=== PATIENT | female | born 1935 | race American Indian/Alaskan Native ===

== ENCOUNTER 2019-05-06 20:44 | Inpatient (IN) | payer MEDICARE, OTHER ==
[~2019-05-06] VITALS: Ht 162.6 cm; Wt 65.8 kg
[~2019-05-06 20:44] MED LIST: ALLO300; AMLO5 PO; ASPI325EC; ASPI81EC PO; ATOR10; CITA20 PO; DIAZ5 PO; DOCU100; GLIP10ER PO; GLIP5; Guaifenesin Wit10 ML PO; HYDACE5; HYDCHL12.5; ISOMON30; LEVFLO500 PO; LEVSOD150; LEVSOD150 PO; LOSA50 PO; METO50 PO; METO50ER PO; MULVIT; OMEP20ER PO; PRAV20 PO; PROACE100 PO; Pepcid40 MG PO; ROSI4; SIMV40 PO; VALS80; VALS80 PO
[2019-05-06 21:04] LABS: BASOPHILS ABSOLUTE AUTO 0.02 K/mm3 (0.00-0.23); BASOPHILS PERCENT AUTO 0 % (0-2); EOSINOPHILS PERCENT AUTO 1 % (0-6); Hematocrit 37.4 % (33.0-51.0); Hemoglobin 12.7 g/dL (11.5-16.0); IMMATURE GRAN ABSOLUTE AUTO 0.03 K/mm3 (0.00-0.10); IMMATURE GRAN PERCENT AUTO 0 % (0-1); LYMPHOCYTES ABSOLUTE AUTO 1.44 K/mm3 (0.84-5.20); LYMPHOCYTES PERCENT AUTO 16 % (21-46); MONOCYTES ABSOLUTE AUTO 0.62 K/mm3 (0.16-1.47); MONOCYTES PERCENT AUTO 7 % (4-13); Mean Corpuscular HGB 32.3 pg (26.0-34.0); Mean Corpuscular Volume 95 fL (80-100); Mean Platelet Volume 11.5 fL (9.1-12.4); NEUTROPHILS ABSOLUTE AUTO 6.65 K/mm3 (1.96-9.15); NEUTROPHILS PERCENT AUTO 75 % (41-73); Platelet Count 166 K/mm3 (150-400); RDW Standard Deviation 42.5 fL (35.1-46.3); Red Blood Cell Count 3.93 M/mm3 (3.80-5.20); White Blood Cell Count 8.86 K/mm3 (4.00-11.30)
[2019-05-06 21:16] LABS: Alanine Aminotransfer (ALT/SGP 25 U/L (12-78); Albumin, Blood 3.8 g/dL (3.4-5.0); Albumin/Globulin Ratio 1.2 (0.8-1.8); Alk Phos 99 U/L (50-136); Anion Gap 8 mmol/L (6-16); Aspartate Aminotrans (AST/SGOT 28 U/L (12-37); Bilirubin, Total 0.2 mg/dL (0.1-1.0); Blood Urea Nitrogen 145 mg/dL (8-24); Bun/Creatinine Ratio 61.2 (12.0-20.0); CO2, Blood 23 mmol/L (21-32); Chloride, Blood 101 mmol/L (98-108); Creatinine, Blood 2.37 mg/dL (0.40-1.00); Ethanol (Alcohol), Blood, Med <3 mg/dL; Globulin, Blood 3.2 g/dL (2.2-4.0); Glomerular Filtration Rate 21 (60-); Glucose, Blood 78 mg/dL (70-99); Potassium, Blood 4.8 mmol/L (3.5-5.5); Sodium, Blood 132 mmol/L (136-145)
[2019-05-06] MEDS ORDERED: Aspir 8181 MG PO (21:18)
[2019-05-06] MEDS ORDERED: FURO40 PO (21:18)
[2019-05-06] MEDS ORDERED: LISI20 PO (21:19)
[2019-05-06] MEDS ORDERED: NITR.4SL SL (21:20)
[2019-05-06] MEDS ORDERED: Venlafaxine HCl75 MG PO (21:21)
[2019-05-06] MEDS ORDERED: HYDCHL25 PO (21:22)
[2019-05-06 22:05] LABS: Source, Urine Clean Catch
[2019-05-06 22:13] LABS: Appearance, Urine Clear (Clear); Bilirubin, Urine Neg (Neg); Blood, Urine Neg (Neg); Color, Urine Yellow (P-Yellow); Glucose Qualitative, Urine Neg (Neg); Ketones, Urine Neg (Neg); Leukocyte Esterase, Urine 1+ (Neg); Nitrite, Urine Neg (Neg); Protein, Urine Neg (Neg); Specific Gravity, Urine 1.015 (1.003-1.022); Urobilinogen, Urine NORM (Normal)
[2019-05-06 22:20] LABS: U Amphetamine Screen Not Detected; U Barbituate Screen Not Detected; U Benzodiazapine Screen Not Detected; U Buprenorphine Screen Not Detected; U Cannabinoids Screen Not Detected; U Cocaine Screen Not Detected; U Methadone Screen Not Detected; U Methamphetamine Screen Not Detected; U Opiates Screen Not Detected; U Phencyclidine Screen Not Detected
[2019-05-06 22:21] LABS: U Oxycodone Screen Not Detected; U Propoxyphene Screen Not Detected
[2019-05-06 22:23] LABS: Bacteria Few /hpf; Red Blood Cells, Urine Not Seen /hpf (0-2); Squamous Epithelial Cells Mod /hpf (Few); White Blood Cells, Urine 0-2 /hpf (0-5)
--- NOTE | 2019-05-07 00:29 | NUR ---
83 YR OLD FEMALE ADMITTED TO FLOOR FROM THE ED WITH DX OF ARF. ACCOMPANIED BY SEVERAL DAUGHTERS. ONE WHO VOICED WOULD STAY THROUGH NIGHT. ALERT AND ORIENTED. REPORT FROM ED WAS PT FELL AT HOME CAUSING HEMATOMA OF LEFT ARM. IVF OF NS - TO RECEIVE 2000 CC DUE TO LOW BP. ORIENTED TO [facility].
--- NOTE | 2019-05-07 04:31 | NUR ---
83 yr old female admitted to floor from the ED with Dx ARF. IVF of NS infusing at 200 ml/hr and received flu shot as per MD orders. Daughter at bedside. Pt has been up to bathroom with asist several times to void. Oriented to call light, call light in reach.
[2019-05-07 04:56] LABS: BASOPHILS ABSOLUTE AUTO 0.02 K/mm3 (0.00-0.23); BASOPHILS PERCENT AUTO 0 % (0-2); EOSINOPHILS ABSOLUTE AUTO 0.11 K/mm3 (0.00-0.68); EOSINOPHILS PERCENT AUTO 1 % (0-6); IMMATURE GRAN ABSOLUTE AUTO 0.04 K/mm3 (0.00-0.10); IMMATURE GRAN PERCENT AUTO 1 % (0-1); LYMPHOCYTES PERCENT AUTO 31 % (21-46); MONOCYTES ABSOLUTE AUTO 0.59 K/mm3 (0.16-1.47); MONOCYTES PERCENT AUTO 7 % (4-13); Mean Corpuscular HGB 32.9 pg (26.0-34.0); Mean Corpuscular HGB Conc 34.3 g/dL (31.5-36.5); Mean Corpuscular Volume 96 fL (80-100); Mean Platelet Volume 11.2 fL (9.1-12.4); NEUTROPHILS ABSOLUTE AUTO 4.88 K/mm3 (1.96-9.15); NEUTROPHILS PERCENT AUTO 60 % (41-73); Platelet Count 151 K/mm3 (150-400); RDW Standard Deviation 42.2 fL (35.1-46.3); Red Blood Cell Count 3.65 M/mm3 (3.80-5.20); White Blood Cell Count 8.14 K/mm3 (4.00-11.30)
[2019-05-07 05:13] LABS: Bun/Creatinine Ratio 63.4 (12.0-20.0); Calcium, Blood 8.8 mg/dL (8.5-10.1); Creatinine, Blood 2.02 mg/dL (0.40-1.00)
--- NOTE | 2019-05-07 16:59 | NUR ---
Spiritual Care inital note: Mrs. Teixeira was awake, alert, and speaking with two of her six adult children. Dtr appear very loving and concerned. They tell me they are already getting "our kidneys tested to see who can donate to mom." Pt became tearful when they said that and began talking to me about her conflicting feelings about agressive treatements vs letting nature take its course. She blames her health decline on the loss of three siblings this past Summer. Mrs. Teixeira says she has been unable to rise above her grief. She has a very large family--over 60 of them between her six children, grandkids, grt-grands, and grt-grt grands. She is clearly the matriarch and her dtrs are determined to keep her going. They were adamant with this. Mrs. Teixeira has a strong Scientologist moshe and is appreciaitve of gentle dependency counselor and prayer. It would be beneficial to speak with Mrs. Teixeira while she is alone to see just how far she wishes to go with treatments. It was clear to me that she was hesitant to speak about this with her dtrs present. She would benefit from a clear, understandable explaination of her options. Family Literacy Coordinator Services will remain available.
--- NOTE | 2019-05-07 19:30 | NUR ---
SHIFT SUMMARY NO ACUTE CHANGES. PATIENT DENIES PAIN, NAUSEA, AND SHORTNESS OF BREATH. PATIEN WEANED EASILY FROM 2L NC TO ROOM AIR. PATIENT OXYGEN SATURATION MAINTIANING ABOVE 92% ON ROOM AIR. PATIENT WORKED WITH PT TODAY. PATIENT UP SBA W/FWW. PATIENT AMBULATED IN HALLWAY WITH PT. FAMILY AT BEDSIDE. PATIENT'S DAUGHTERS VERY CONCERNED THAT PATIENT WOULD NEED KIDNEY TRANSPLANT. CARE PLAN AND PATIENT'S LABS REVIEWED WITH PATIENT AND FAMILY. FAMILY APPEARS TO FEEL MORE COMFORTABLE AT THIS TIME. CALL LIGHT IN REACH.
--- NOTE | 2019-05-08 03:14 | NUR ---
05/07/191999 PT RESTING COMFORTABLY IN BED WITH DAUGHTER ELDER AT SIDE WHOM VERY ATTENTIVE AND SPENDING NIGHT AT SIDE IN LOUNGE CHAIR. 05/08/19314 PT RESTING COMFORTABLY IN BED.
[2019-05-08 05:01] LABS: BASOPHILS ABSOLUTE AUTO 0.06 K/mm3 (0.00-0.23); BASOPHILS PERCENT AUTO 1 % (0-2); EOSINOPHILS ABSOLUTE AUTO 0.28 K/mm3 (0.00-0.68); EOSINOPHILS PERCENT AUTO 5 % (0-6); Hematocrit 33.4 % (33.0-51.0); Hemoglobin 11.1 g/dL (11.5-16.0); IMMATURE GRAN PERCENT AUTO 0 % (0-1); LYMPHOCYTES ABSOLUTE AUTO 2.34 K/mm3 (0.84-5.20); LYMPHOCYTES PERCENT AUTO 42 % (21-46); MONOCYTES ABSOLUTE AUTO 0.66 K/mm3 (0.16-1.47); MONOCYTES PERCENT AUTO 12 % (4-13); Mean Corpuscular HGB 32.6 pg (26.0-34.0); Mean Corpuscular HGB Conc 33.2 g/dL (31.5-36.5); Mean Corpuscular Volume 98 fL (80-100); Mean Platelet Volume 11.2 fL (9.1-12.4); NEUTROPHILS ABSOLUTE AUTO 2.27 K/mm3 (1.96-9.15); NEUTROPHILS PERCENT AUTO 40 % (41-73); Platelet Count 140 K/mm3 (150-400); RDW Coefficient Variation 12.4 % (11.7-14.2); RDW Standard Deviation 44.9 fL (35.1-46.3); White Blood Cell Count 5.61 K/mm3 (4.00-11.30)
[2019-05-08 05:25] LABS: Albumin, Blood 3.2 g/dL (3.4-5.0); Anion Gap 4 mmol/L (6-16); Blood Urea Nitrogen 80 mg/dL (8-24); Bun/Creatinine Ratio 52.6 (12.0-20.0); CO2, Blood 23 mmol/L (21-32); Calcium, Blood 8.5 mg/dL (8.5-10.1); Chloride, Blood 118 mmol/L (98-108); Creatinine, Blood 1.52 mg/dL (0.40-1.00); Glomerular Filtration Rate 35 (60-); Glucose, Blood 103 mg/dL (70-99); Magnesium, Blood 2.2 mg/dL (1.6-2.4); Potassium, Blood 4.9 mmol/L (3.5-5.5); Sodium, Blood 145 mmol/L (136-145); Troponin I <0.015 ng/mL (0.000-0.040)
[2019-05-08 05:28] LABS: Thyroid Stimulating Hormone 0.526 uIU/mL (0.360-4.800)
--- NOTE | 2019-05-08 06:35 | NUR ---
SHIFT SUMMARY: 83 Y/O FEMALE RESTED COMFORTABLY IN BED ALL SHIFT, DENIES PAIN OR NAUSEA, HAPPY AND COOPERATIVE, ELDER--DAUGTHER AT SIDE ALL SHIFT IN LOUNGE CHAIR AND VERY SUPPORTIVE, BED LOW POSITION WITH CALL LIGHT AT SIDE.
--- NOTE | 2019-05-08 18:42 | NUR ---
SHIFT SUMMARY PATIENT PLEASANT. FAMILY IN THE ROOM. DAUGHTER GOING TO STAY THE NIGHT WITH THE PATIENT. NO ACUTE CONCERNS AT THIS TIME. SHE MOVES TO THE BATHROOM WITH DAUGHTER HELP.
--- NOTE | 2019-05-08 23:54 | NUR ---
2000 PT RESTING COMFORTABLY IN BED WITH NUMEROUS FAMILY MEMBERS AT SIDE, ALERT AND ORIENTED X 4, DENIES PAIN OR NAUSEA. 2340 RESTING QUIETLY WITH DAUGHTER ELDER AT SIDE FOR NIGHT IN LOUNGE CHAIR.
[2019-05-09 04:53] LABS: BASOPHILS ABSOLUTE AUTO 0.04 K/mm3 (0.00-0.23); BASOPHILS PERCENT AUTO 1 % (0-2); EOSINOPHILS ABSOLUTE AUTO 0.37 K/mm3 (0.00-0.68); EOSINOPHILS PERCENT AUTO 5 % (0-6); Hematocrit 33.7 % (33.0-51.0); Hemoglobin 11.2 g/dL (11.5-16.0); IMMATURE GRAN ABSOLUTE AUTO 0.01 K/mm3 (0.00-0.10); IMMATURE GRAN PERCENT AUTO 0 % (0-1); LYMPHOCYTES ABSOLUTE AUTO 2.73 K/mm3 (0.84-5.20); LYMPHOCYTES PERCENT AUTO 36 % (21-46); MONOCYTES ABSOLUTE AUTO 0.88 K/mm3 (0.16-1.47); MONOCYTES PERCENT AUTO 12 % (4-13); Mean Corpuscular HGB 32.4 pg (26.0-34.0); Mean Corpuscular HGB Conc 33.2 g/dL (31.5-36.5); Mean Corpuscular Volume 97 fL (80-100); Mean Platelet Volume 11.4 fL (9.1-12.4); NEUTROPHILS ABSOLUTE AUTO 3.49 K/mm3 (1.96-9.15); NEUTROPHILS PERCENT AUTO 47 % (41-73); Platelet Count 146 K/mm3 (150-400); RDW Coefficient Variation 12.3 % (11.7-14.2); RDW Standard Deviation 44.1 fL (35.1-46.3); Red Blood Cell Count 3.46 M/mm3 (3.80-5.20); White Blood Cell Count 7.52 K/mm3 (4.00-11.30)
[2019-05-09 05:18] LABS: Bun/Creatinine Ratio 45.9 (12.0-20.0); Calcium, Blood 8.9 mg/dL (8.5-10.1); Creatinine, Blood 1.48 mg/dL (0.40-1.00); Potassium, Blood 4.7 mmol/L (3.5-5.5)
--- NOTE | 2019-05-09 06:12 | NUR ---
SHIFT SUMMARY: 83 Y/O FEMALE RESTED COMFORTABLY ALL SHIFT WITH ELDER--DAUGHTER AT SIDE ALL NIGHT WHOM ASSISTED WITH ALL ADLS TO INCLUDE AMBULATING TO BATHROOM AND BACK, DENIES PAIN OR NAUSEA, BED LOW POSITION WITH CALL LIGHT AT SIDE.
[2019-05-09] MEDS ORDERED: METO25ER PO (12:54)
--- NOTE | 2019-05-09 13:45 | NUR ---
DISCHARGE NOTE MEDICATIONS FAXED TO PREFERED PHARMACY. IV DC'D WNL. PT GIVEN HARDCOPY AND VERBAL INSTRUCTIONS FOR DC RE: MEDICATIONS, FOLLOW UP APPOINTMENTS, DIAGNOSES. PT AND FAMILY HAD NO FURTHER QUESTIONS. PERSONAL POSSESSIONS GATHERED BY FAMILY. BUSH REGENERATOR ESCORTED PT OUT VIA WHEELCHAIR TO PERSONAL VEHICLE
== END 2019-05-09 13:38 | disposition home or self-care (01) | DRG 682 ==
LOC: ER 20:44 → MEDS 22:46 → ENPENDDIS 05-09 11:00 → MEDS 05-09 13:38
PROVIDERS: Emergency Medicine; Family Medicine; ADMIT Hospitalist
DX: N17.9 Acute kidney failure, unspecified (principal); G92 Toxic encephalopathy; E87.1 Hypo-osmolality and hyponatremia; F03.90 Unspecified dementia, unspecified severity, without behavioral disturbance, psychotic disturbance, mood disturbance, and anxiety; I25.2 Old myocardial infarction; Z95.1 Presence of aortocoronary bypass graft; E11.649 Type 2 diabetes mellitus with hypoglycemia without coma; E11.22 Type 2 diabetes mellitus with diabetic chronic kidney disease; N18.3 Chronic kidney disease, stage 3 (moderate); E03.9 Hypothyroidism, unspecified; E86.0 Dehydration; M10.9 Gout, unspecified; Z79.82 Long term (current) use of aspirin; Z79.84 Long term (current) use of oral hypoglycemic drugs
CPT/HCPCS: 36415; 71045; 76770; 80048; 80053; 80069; 81001; 82947; 83735; 84443; 84484; 85025; 85651; 87086; 90686; 93005; 93010; 96361; 96374; 96375; 97110; 97161; 97530; 99285-25; G0480; J0461; J1610; J1644; J1940; J2405; J7030

== ENCOUNTER 2019-05-11 20:53 | Observation (INO) | payer MEDICARE, OTHER ==
[~2019-05-11] VITALS: Ht 152.4 cm; Wt 64.7 kg
[~2019-05-11 20:53] MED LIST changes: +Aspir 8181 MG PO; +FURO40 PO; +HYDCHL25 PO; +LISI20 PO; +METO25ER PO; +NITR.4SL SL; +Venlafaxine HCl75 MG PO
[2019-05-11 21:45] LABS: PCO2 Venous 37.1 mmHg (38-42); PO2 Venous 103 mmHg (38-42)
[2019-05-11 21:50] LABS: BASOPHILS ABSOLUTE AUTO 0.03 K/mm3 (0.00-0.23); BASOPHILS PERCENT AUTO 0 % (0-2); EOSINOPHILS ABSOLUTE AUTO 0.19 K/mm3 (0.00-0.68); EOSINOPHILS PERCENT AUTO 2 % (0-6); Hematocrit 33.6 % (33.0-51.0); Hemoglobin 11.9 g/dL (11.5-16.0); IMMATURE GRAN ABSOLUTE AUTO 0.01 K/mm3 (0.00-0.10); IMMATURE GRAN PERCENT AUTO 0 % (0-1); LYMPHOCYTES ABSOLUTE AUTO 1.77 K/mm3 (0.84-5.20); LYMPHOCYTES PERCENT AUTO 21 % (21-46); MONOCYTES ABSOLUTE AUTO 0.69 K/mm3 (0.16-1.47); MONOCYTES PERCENT AUTO 8 % (4-13); Mean Corpuscular HGB 32.4 pg (26.0-34.0); Mean Corpuscular HGB Conc 35.4 g/dL (31.5-36.5); Mean Corpuscular Volume 92 fL (80-100); Mean Platelet Volume 11.6 fL (9.1-12.4); NEUTROPHILS ABSOLUTE AUTO 5.73 K/mm3 (1.96-9.15); NEUTROPHILS PERCENT AUTO 68 % (41-73); Platelet Count 158 K/mm3 (150-400); RDW Coefficient Variation 11.9 % (11.7-14.2); RDW Standard Deviation 39.9 fL (35.1-46.3); Red Blood Cell Count 3.67 M/mm3 (3.80-5.20); White Blood Cell Count 8.42 K/mm3 (4.00-11.30)
[2019-05-11 22:09] LABS: Albumin, Blood 3.7 g/dL (3.4-5.0); Albumin/Globulin Ratio 1.1 (0.8-1.8); Bilirubin, Total 0.5 mg/dL (0.1-1.0); Bun/Creatinine Ratio 40.1 (12.0-20.0); Calcium, Blood 8.7 mg/dL (8.5-10.1); Creatinine, Blood 1.42 mg/dL (0.40-1.00); Globulin, Blood 3.3 g/dL (2.2-4.0); Potassium, Blood 4.1 mmol/L (3.5-5.5)
[2019-05-12 00:45] LABS: Source, Urine Clean Catch
[2019-05-12 00:47] LABS: Bilirubin, Urine Neg (Neg); Blood, Urine Neg (Neg); Glucose Qualitative, Urine 1+ (Neg); Ketones, Urine Neg (Neg); Leukocyte Esterase, Urine Neg (Neg); Nitrite, Urine Neg (Neg); Protein, Urine Neg (Neg); Urobilinogen, Urine NORM (Normal)
[2019-05-12 00:48] LABS: Appearance, Urine Clear (Clear); Color, Urine Yellow (P-Yellow)
[2019-05-12 06:00] LABS: Bun/Creatinine Ratio 43.9 (12.0-20.0); Calcium, Blood 8.5 mg/dL (8.5-10.1); Creatinine, Blood 1.32 mg/dL (0.40-1.00); Potassium, Blood 3.7 mmol/L (3.5-5.5)
[2019-05-12] MEDS ORDERED: VENLAFAXINE HCL75 MG PO (11:41)
[2019-05-12] MEDS ORDERED: SYNTHROID175 MCG PO (11:41)
[2019-05-12] MEDS ORDERED: Hydrochlorothia25 MG PO (11:43)
[2019-05-12] MEDS ORDERED: ZESTRIL40 M1 PO (11:43)
--- NOTE | 2019-05-12 12:40 | NUR ---
ER ADMIT- PT ARRIVED TO PCU 6 VIA GURNEY FROM ED. PT A/OX4, SBA INTO BED. PT DENIES ANY COMPLAINTS. LS CLEAR, ON RA. TELE SR WITH BBB, PAC'S AND FREQUENT PVC'S IN THE 60'S. BRUISING NOTED TO LEFT ARM. SWELLING TO RAC FROM INFILTRATED IV IN ED. 22G TO RAC WITH D51/2NS RUNNING AT 75ML/HR. BLOOD GLUCOSE OF 149. PT ORIENTED TO ROOM AND CALL SYSTEM, FAMILY AT BEDSIDE.
--- NOTE | 2019-05-12 18:18 | NUR ---
SHIFT SUMMARY- PT ER ADMIT THIS AM. PT A/OX4, SLIGHTLY FORGETFUL AT TIMES. PT ADMITTED FOR HYPOGLYCEMIA FROM AN INCREASE IN GLIPIZIDE. BLOOD GLUCOSE STABLE T/O THE DAY SINCE ADMIT. 1 ASSIST INTO BATHROOM. LS CLEAR, ON RA. TELE SR WITH BBB, PAC'S AND FREQUENT PVC'S IN THE 60'S. PT REPORTS HAVING HALLUCINATIONS OF SEEING GREEN COLORS ON THE CEILING AT TIMES. PT HAS MULTIPLE FAMILY MEMBERS AT BEDSIDE SINCE ADMIT, PT TEARFUL AT TIMES. NO OTHER ACUTE CHANGES SINCE ADMIT.
--- NOTE | 2019-05-12 23:15 | NUR ---
PROVIDER CONTACTED PT WITH BLOOD GLUCOSE >150 SINCE 1500. PT FELECIA AOX4. NO ACUTE CHANGES FROM ASSESSMENT AT THIS TIME. PROVIDER, SHERWIN, CONTACTED AND UPDATED ON PT CONDITION. BLOOD GLUCOSE MONITORING CHANGED TO Q2 X2 AND THEN TO BE INCREASED TO Q4 IF STABLE. WILL CHANGE BLOOD GLUCOSE MONITORING AND INITIATE.
[2019-05-13 04:24] LABS: Albumin, Blood 3.2 g/dL (3.4-5.0); Anion Gap 9 mmol/L (6-16); Blood Urea Nitrogen 45 mg/dL (8-24); Bun/Creatinine Ratio 36.9 (12.0-20.0); CO2, Blood 22 mmol/L (21-32); Calcium, Blood 8.4 mg/dL (8.5-10.1); Chloride, Blood 99 mmol/L (98-108); Creatinine, Blood 1.22 mg/dL (0.40-1.00); Glomerular Filtration Rate 44 (60-); Glucose, Blood 128 mg/dL (70-99); Phosphorus, Blood 2.7 mg/dL (2.5-4.9); Potassium, Blood 4.3 mmol/L (3.5-5.5); Sodium, Blood 130 mmol/L (136-145)
--- NOTE | 2019-05-13 06:47 | NUR ---
SHIFT SUMMARY PT HAS REMAINED AOX4 THROUGHOUT SHIFT. PLEASANT AND COOPERATIVE WITH CARE. HR DECREASED THROUGHOUT THE NIGHT WHILE SLEEPING, ONE NOTED TWO SECOND PAUSE- PT WAS ASYMPTOMATIC, ALL OTHER VSS. BLOOD GLUCOSE READINGS HAVE REMAINED >100 THROUHGOUT THE NIGHT. PT CURRENTLY WITH Q2 BLOOD GLUCOSE CHECKS PER PREVIOUS ORDER. PT AMBULATES WITH STANDBY ASSIST TO BATHROOM WITHOUT DIFFICULTY AND WALKS WITH STEADY GAIT. PT REPORTS THAT EARLIER IN THE DAY, SHE WAS HAVING VISUAL HALLUCINATIONS THAT HAVE SUBSIDED PRIOR TO START OF SHIFT AND WITH BLOOD GLUCOSE STABILIZATION. NO OTHER CHANGES NOTED FROM INITIAL ASSESSMENT. WILL CONTINUE TO MONITOR AND REPORT TO ONCOMING SHIFT RN. BED IN LOW POSITION, CALL LIGHT IN REACH. BED ALARM SET FOR SAFETY.
[2019-05-13] MEDS ORDERED: LEVSOD100 PO (10:01)
--- NOTE | 2019-05-13 10:44 | NUR ---
PT HAS BEEN DISCHARGED TO HOME DAUGHTER IN ROOM GOING OVER DISCHARGE INSTRUCTIONS, IV REMOVED INTACT, THEY VERBALIZED UNDERSTANDING OF INSTRUCTIONS, NEW MEDS CALLED INTO [facility]. WILL LEAVE VIA WHEELCHAIR WITH INCLUSION SPECIAL EDUCATOR AND DAUGHTER IN ATTENDENCE.
--- NOTE | 2019-05-13 10:55 | NUR ---
PT LEFT VIA WHEELCHAIR WITH NURSE AND DAUGHTER IN ATTENDENCE WITH ALL HER BELONGINGS.
== END 2019-05-13 11:00 | disposition home or self-care (01) ==
LOC: ER 20:53 → ERHOLD 20:54 → PCU 05-12 11:41
PROVIDERS: Family Medicine; Physician Assistant; ADMIT Hospitalist
DX: E11.65 Type 2 diabetes mellitus with hyperglycemia (principal); E87.1 Hypo-osmolality and hyponatremia; I25.10 Atherosclerotic heart disease of native coronary artery without angina pectoris; I13.0 Hypertensive heart and chronic kidney disease with heart failure and stage 1 through stage 4 chronic kidney disease, or unspecified chronic kidney disease; E11.22 Type 2 diabetes mellitus with diabetic chronic kidney disease; I50.32 Chronic diastolic (congestive) heart failure; N18.3 Chronic kidney disease, stage 3 (moderate); E78.5 Hyperlipidemia, unspecified; M10.9 Gout, unspecified; F32.9 Major depressive disorder, single episode, unspecified; Z95.1 Presence of aortocoronary bypass graft; Z79.82 Long term (current) use of aspirin; Z79.899 Other long term (current) drug therapy; Z79.84 Long term (current) use of oral hypoglycemic drugs
CPT/HCPCS: 80048; 80053; 80069; 81003; 82803; 82947; 83880; 85025; 93005; 93010; 96365; 96366; 96372; 96375; 96376; 99285-25; G0378; J1610; J1644; J7042; J7060; J7070; J7799

== ENCOUNTER → 2021-01-28 | Outpatient (CLI) | payer MEDICARE ==
[~2021-01-28] MED LIST changes: +Hydrochlorothia25 MG PO; +LEVSOD100 PO; +SYNTHROID175 MCG PO; +VENLAFAXINE HCL75 MG PO; +ZESTRIL40 M1 PO
[2021-01-29 16:51] LABS: Microalb/Creat Ratio UR, Rand 206.325 mg/g (0.000-30.000)
[2021-02-16 10:16] LABS: Creatinine, Urine Random 66.4 mg/dL (27.00-270.00)
== END | disposition home or self-care (01) ==
LOC: LAB 11:30 → LAB SHORT 11:30
PROVIDERS: Family Medicine
DX: I10 Essential (primary) hypertension (principal)
CPT/HCPCS: 82043; 82570

== ENCOUNTER 2021-08-02 10:07 | Emergency (ER) | payer MEDICARE ==
[~2021-08-02] VITALS: Ht 152.4 cm; Wt 54.4 kg
[~2021-08-02 10:07] MED LIST changes: -LISI20; -METFORMIN HCL500 M2
[2021-08-02] MEDS ORDERED: METFORMIN HCL500 M2 (10:25)
[2021-08-02] MEDS ORDERED: LISI20 (10:25)
== END 2021-08-02 13:54 | disposition home or self-care (01) ==
LOC: ER 10:07
DX: R07.89 Other chest pain (principal); I12.9 Hypertensive chronic kidney disease with stage 1 through stage 4 chronic kidney disease, or unspecified chronic kidney disease; E11.22 Type 2 diabetes mellitus with diabetic chronic kidney disease; N18.30 Chronic kidney disease, stage 3 unspecified; I25.10 Atherosclerotic heart disease of native coronary artery without angina pectoris; E03.9 Hypothyroidism, unspecified; I25.2 Old myocardial infarction; Z79.4 Long term (current) use of insulin; Z79.82 Long term (current) use of aspirin; Z79.899 Other long term (current) drug therapy; Z79.84 Long term (current) use of oral hypoglycemic drugs
CPT/HCPCS: 71045; 84484; 93005; 93010; 99285-25

== ENCOUNTER → 2021-08-02 | Outpatient (CLI) | payer MEDICARE ==
[~2021-08-02] MED LIST changes: +LISI20; +METFORMIN HCL500 M2
[2021-08-02 10:06] LABS: BASOPHILS ABSOLUTE AUTO 0.04 K/mm3 (0.00-0.23); BASOPHILS PERCENT AUTO 1 % (0-2); EOSINOPHILS ABSOLUTE AUTO 0.49 K/mm3 (0.00-0.68); EOSINOPHILS PERCENT AUTO 6 % (0-6); Hematocrit 37.7 % (33.0-51.0); Hemoglobin 12.7 g/dL (11.5-16.0); IMMATURE GRAN ABSOLUTE AUTO 0.01 K/mm3 (0.00-0.10); IMMATURE GRAN PERCENT AUTO 0 % (0-1); LYMPHOCYTES ABSOLUTE AUTO 3.18 K/mm3 (0.84-5.20); LYMPHOCYTES PERCENT AUTO 40 % (21-46); MONOCYTES ABSOLUTE AUTO 0.52 K/mm3 (0.16-1.47); MONOCYTES PERCENT AUTO 7 % (4-13); Mean Corpuscular HGB Conc 33.7 g/dL (31.5-36.5); Mean Corpuscular Volume 98 fL (80-100); Mean Platelet Volume 10.6 fL (9.1-12.4); NEUTROPHILS PERCENT AUTO 47 % (41-73); Platelet Count 185 K/mm3 (150-400); RDW Coefficient Variation 13.1 % (11.7-14.2); RDW Standard Deviation 46.8 fL (35.1-46.3); Red Blood Cell Count 3.85 M/mm3 (3.80-5.20); White Blood Cell Count 7.94 K/mm3 (4.00-11.30)
[2021-08-02 10:16] LABS: Bun/Creatinine Ratio 26.7 (12.0-20.0); Calcium, Blood 9.2 mg/dL (8.5-10.1); Creatinine, Blood 1.01 mg/dL (0.40-1.00); Potassium, Blood 3.8 mmol/L (3.5-5.5)
== END | disposition home or self-care (01) ==
LOC: LAB 10:00 → LAB SHORT 10:00
PROVIDERS: Physician Assistant Surgical
DX: R07.9 Chest pain, unspecified (principal)
CPT/HCPCS: 80048; 84484; 85025

== ENCOUNTER → 2022-08-07 | Outpatient (CLI) | payer MEDICARE ==
[~2022-08-07] MED LIST changes: +LISI20; +METFORMIN HCL500 M2
== END | disposition home or self-care (01) ==
LOC: LAB 11:27 → LAB SHORT 11:27
DX: N39.0 Urinary tract infection, site not specified (principal)
CPT/HCPCS: 87077; 87086; 87186